=== PATIENT | female | born 1960 | race African-American/Black ===

== ENCOUNTER → 2019-12-02 | Outpatient (CLI) | payer MEDICARE, MEDICAID ==
[~2019-12-02] MED LIST: AMLO10TA8 PO; ATOR10TA60 PO; CALC; CALC ACETATE PO; CYCL10TA2 PO; DIAZ2TAB3 PO; GABA300C18 PO; HYDR-2868 PO; LOSA-73 PO; METO50TA6 PO; OXYC10TA PO; RANI150T2 PO
--- NOTE | 2019-12-02 16:48 | RAD ---
MRI Lumbar Spine without contrast History: Bilateral leg weakness, history of fusion Technique: Multiplanar, multi sequential noncontrast MR imaging was performed of the lumbar spine. Comparison: November 08, 2012 Findings: There is motion degradation. Lumbar vertebral body stature is grossly maintained although there is likely some increased endplate irregularity and concavity of L3 and L4. There is now interbody fusion at L4-5 and L5-S1. There is now posterolateral fusion hardware with bilateral pedicle screws at L4 and L5 with hardware extending more inferiorly to the sacrum, hardware poorly evaluated. There is new edema associated with L3-4 endplates and in the L3-4 intervertebral disc space. There is mild disc desiccation L2-3. Conus terminates near L1-2. There is again negligible posterior subluxation L5 relative S1. Urinary bladder is likely distended, not fully evaluated. There is a small hemangioma of the superior T12 vertebral body. There is nonspecific edema of the posterior subcutaneous fat of the lower back and posterior paraspinous soft tissues, no defined focal fluid collection in this region. L1-L2: This level was not included on the axial images. Neural foramina and spinal canal are adequate. L2-L3: There is mild facet degenerative change. Neural foramina and spinal canal are adequate. L3-L4: There is mild buckling of the ligamentum flavum and mild to moderate facet hypertrophic change, minimal fluid in the facet articulations greater on the right. There is now minimal posterior bulge/protrusion in the left lateral recess. There is increased mild to moderate narrowing of the far left lateral recess and mild narrowing of the right lateral recess. There is mild bilateral neural foramina compromise. L4-L5: There has been left laminectomy, spinal canal now adequate at this level. Neural foramina are adequate. L5-S1: There is left laminectomy defect. Spinal canal is adequate. Neural foramina are somewhat difficult to characterize given artifact and motion, likely mild left and mild to moderate right neural foramina compromise. Impression: 1. Comparing with 2013 exam, there is increased [id number] left and mild right lateral recess stenosis L3-4 as described spinal canal now adequate at the L4-5 level. There is mild bilateral L3-4 neural foramina compromise, also suspected mild to moderate right and mild left L5-S1 neural foramina compromise. 2. There is now interbody fusion L4-5 and L5-S1. There is nonspecific edema in the L3-4 intervertebral disc space and adjacent endplates which could be reactive/degenerative in etiology unless clinical suspicion for infection, potentially could be due to dialysis related spondyloarthropathy especially if there are no clinical findings suggestive of infection. 3. There is nonspecific edema of the posterior paraspinous soft tissues, could be related to dependent edema assuming there is no clinical suspicion for soft tissue infection. Electronically signed by: Sukhwinder Gupta MD (12/02/2019 4:45 PM) [id number]
== END | disposition home or self-care (01) ==
LOC: MRI 14:15
PROVIDERS: ATTEND Internal Medicine
DX: M48.061 Spinal stenosis, lumbar region without neurogenic claudication (principal); M62.81 Muscle weakness (generalized); D18.09 Hemangioma of other sites; Z98.890 Other specified postprocedural states; Z98.1 Arthrodesis status; Z99.2 Dependence on renal dialysis
CPT/HCPCS: 72148